=== PATIENT | male | born 1970 ===

== ENCOUNTER 2020-09-21 15:10 | Outpatient (REF) | payer OTHER, SELFPAY ==
[2020-09-21 15:52] LABS: COVID-19 Test Positive (Negative)
== END 2020-09-21 15:11 | disposition home or self-care (01) ==
LOC: HO.EMPCOV 15:10
PROVIDERS: Visit Provider Internal Medicine
DX: Z20.822 Contact with and (suspected) exposure to COVID-19 (principal)
CPT/HCPCS: 36415; 87635

== ENCOUNTER 2024-04-24 15:28 | Emergency (ER) | payer SELFPAY ==
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
[2024-04-24 15:33] VITALS: BP 147/95; PULSE 98; RESP 18; TEMP 36.6; O2SAT 98; BMI 22.3
[2024-04-24 15:58] VITALS: BP 137/93; PULSE 90; RESP 17; TEMP 36.7; O2SAT 97
[2024-04-24 16:12] LABS: MANUAL DIFF FLAG NO
[2024-04-24 16:17] LABS: Basophils Absolute Auto 0.1 X10*3/uL (0.0-0.2); Basophils Percent Auto 0.6 % (0-2); Eosinophils Absolute Auto 0.5 X10*3/uL (0.0-0.4); Eosinophils Percent Auto 3.3 % (0-4); Hemoglobin 12.7 g/dl (14.0-18.0); Imm Gran Abs Auto 0.04 X10*3/uL (0.00-0.03); Imm Gran Pct Auto 0.3 % (0.0-0.4); Lymphocytes Absolute Auto 3.1 X10*3/uL (1.2-4.9); Lymphocytes Percent Auto 22.1 % (20-40); Mean Corpuscular HGB Conc 34.3 g/dl (31.0-36.0); Mean Corpuscular Hemoglobin 31.5 pg (27.0-33.0); Mean Corpuscular Volume 91.8 fL (80.0-98.0); Mean Platelet Volume 9.5 fL (9.4-12.4); Monocytes Absolute Auto 1.3 X10*3/uL (0.1-1.2); Monocytes Percent Auto 9.2 % (2-11); Neutrophils Absolute Auto 9.2 x10*3/uL (2.0-8.3); Neutrophils Percent Auto 64.5 % (45-73); Platelet Count 305 X10*3/uL (160-400); Red Blood Count 4.03 X10*6/uL (4.60-5.80); Red Cell Distribution Width 13.6 % (11.0-16.0); White Blood Count 14.2 X10*3/uL (4.8-10.8)
[2024-04-24 16:21] LABS: Prothrombin Time 11.9 SEC (11.1-13.3)
[2024-04-24 16:31] LABS: Alanine Aminotransferase 18 U/L (0-40); Albumin Level 3.9 g/dL (3.5-5.0); Alkaline Phosphatase 73 U/L (39-117); Anion Gap 14 (12-20); Aspartate Amino Transferase 22 U/L (5-37); Bilirubin Total 0.3 mg/dL (0.0-1.0); Blood Urea Nitrogen 21 mg/dL (9-16); Calcium 9.3 mg/dL (8.4-10.2); Carbon Dioxide 21 mmol/L (22-29); Chloride 109 mmol/L (96-108); Creatinine Clr Calc Pharmacy 60.9; Estimated Glomerular Filt Rate 55; Glucose Random 124 mg/dL (60-115); Potassium 4.1 mmol/L (3.3-5.1); Sodium 140 mmol/L (135-145); Total Protein 6.5 g/dL (6.5-8.0)
[2024-04-24] MEDS: iohexoL 350 MG/ML 100 ML INFUS..BTL IV (17:07)
[2024-04-24] MEDS: 0.9 % Sodium Chloride 1,000 ML 999 ML IV (17:12)
[2024-04-24] MEDS: Acetaminophen 325 MG TABLET 975 MG PO (17:54)
[2024-04-24 18:28] VITALS: BP 141/97; PULSE 86; RESP 18; TEMP 36.7; O2SAT 99
[2024-04-24 20:11] VITALS: BP 151/100; PULSE 84; RESP 16; TEMP 36.7; O2SAT 96
== END 2024-04-24 20:13 | disposition home or self-care (01) ==
PROVIDERS: Physician Assistant; Emergency Provider Internal Medicine; PCP Internal Medicine
DX: S30.1XXA Contusion of abdominal wall, initial encounter (principal); R51.9 Headache, unspecified; R07.89 Other chest pain; V19.9XXA Pedal cyclist (driver) (passenger) injured in unspecified traffic accident, initial encounter; Y93.89 Activity, other specified; Y92.89 Other specified places as the place of occurrence of the external cause; Y99.8 Other external cause status; Z79.899 Other long term (current) drug therapy
CPT/HCPCS: 36415; 70450; 71260; 74177; 80053; 85025; 85610; 96360; 99285; Q9967